=== PATIENT | male | born 1945 | race Caucasian/White ===

== ENCOUNTER 2022-12-10 08:28 | Outpatient (CLI) | payer MEDICARE, BC | END 2022-12-10 08:29 | disposition home or self-care (01) | LOC: NM 08:28 | PROVIDERS: ATTEND Psychiatry & Neurology Neurology | DX: G20.C Parkinsonism, unspecified (principal); R93.0 Abnormal findings on diagnostic imaging of skull and head, not elsewhere classified | CPT/HCPCS: 78803; A9584 ==